=== PATIENT | female | born 2000 | race Caucasian/White ===

== ENCOUNTER 2023-01-16 23:27 | Inpatient (IN) | payer OTHER ==
[~2023-01-16] VITALS: Ht 160 cm; Wt 107.0 kg
[2023-01-17] MEDS ORDERED: PRENATAL + DHA1 EAC1 PO (01:15)
== END 2023-01-19 16:57 | disposition home or self-care (01) | DRG 833 ==
LOC: OBS/DEL 23:27 → LDR 01-17 14:22 → OBS/DEL 01-17 14:22 → LDR 01-19 16:57
PROVIDERS: ADMIT Obstetrics & Gynecology Obstetrics; ATTEND Obstetrics & Gynecology Obstetrics
PROC: 4A1HXCZ Monitoring of Products of Conception, Cardiac Rate, External Approach (ICD-10-PCS; principal; 2023-01-17)
PROC: BY4FZZZ Ultrasonography of Third Trimester, Single Fetus (ICD-10-PCS; 2023-01-17)
PROC: BU4CZZZ Ultrasonography of Uterus and Ovaries (ICD-10-PCS; 2023-01-17)
DX: O60.03 Preterm labor without delivery, third trimester (principal); O26.843 Uterine size-date discrepancy, third trimester; O36.8130 Decreased fetal movements, third trimester, not applicable or unspecified; Z3A.35 35 weeks gestation of pregnancy; Z20.822 Contact with and (suspected) exposure to COVID-19

== ENCOUNTER 2023-02-07 16:21 | Inpatient (IN) | payer OTHER ==
[~2023-02-07] VITALS: Ht 152.4 cm; Wt 3.2 kg
[~2023-02-07 16:21] MED LIST: PRENATAL + DHA1 EAC1 PO
== END 2023-02-11 16:08 | disposition home or self-care (01) | DRG 786 ==
LOC: LDR 16:21 → OB/GYN 16:21
PROVIDERS: ADMIT Obstetrics & Gynecology Obstetrics; ATTEND Obstetrics & Gynecology Obstetrics
PROC: BY4FZZZ Ultrasonography of Third Trimester, Single Fetus (ICD-10-PCS; 2023-02-07)
PROC: 4A1HXCZ Monitoring of Products of Conception, Cardiac Rate, External Approach (ICD-10-PCS; 2023-02-07)
PROC: 10D00Z1 Extraction of Products of Conception, Low, Open Approach (ICD-10-PCS; principal; 2023-02-08 16:30)
DX: O14.14 Severe pre-eclampsia complicating childbirth (principal); O41.1230 Chorioamnionitis, third trimester, not applicable or unspecified; Z3A.38 38 weeks gestation of pregnancy; Z37.0 Single live birth; Z20.822 Contact with and (suspected) exposure to COVID-19